=== PATIENT | female | born 1965 | race Caucasian/White ===

== ENCOUNTER 2020-12-12 13:15 | Emergency (ER) | payer MEDICAID, OTHER ==
[~2020-12-12] VITALS: Ht 149.9 cm; Wt 68.0 kg
[2020-12-12] MEDS ORDERED: KETOROLAC TROMETHAMINE 30 MG INJ IVP ONE (13:45)
[2020-12-12] MEDS ORDERED: CEFEPIME HCL 2 G in IV DEXTROSE 5% 100 ML IV ONE (13:45)
[2020-12-12] MEDS ORDERED: IV NORMAL SALINE 1000 ML BAG IV ONE (13:45)
[2020-12-12 13:51] LABS: MEAN CORPUSCULAR HEMOGLOBIN 26.8 uug (24.7-32.8); MEAN CORPUSCULAR VOLUME 80.9 fL (75.5-95.3); PLATELET COUNT (AUTO) 216 K/uL (179-408)
[2020-12-12 13:55] LABS: *BILIRUBIN,URIN NEGATIVE (NEGATIVE); *BLOOD, URINE 3+ (NEGATIVE); *CLARITY,URINE CLEAR (CLEAR); *COLOR,URINE Orange (YELLOW); *KETONES,URINE NEGATIVE (NEGATIVE); LEUKOCYTE ESTERASE ,URINE 1+ (NEGATIVE); NITRITE, URINE POSITIVE (NEGATIVE); UGLUCOSE TRACE (NEGATIVE)
[2020-12-12 13:58] LABS: CREATININE 0.6 mg/dL (0.6-1.3); POTASSIUM 3.7 mmol/L (3.5-5.1)
[2020-12-12 14:04] LABS: BILIRUBIN,DIRECT 0.2 mg/dL (0.0-0.2); BILIRUBIN,TOTAL 1.1 mg/dL (0.2-1.0); TOTAL PROTEIN, SERUM 7.5 g/dL (6.4-8.2)
[2020-12-12] MEDS ORDERED: CEFD300C3 PO (14:13)
[2020-12-12] MEDS ORDERED: IBUP-1955 PO (14:13)
[2020-12-12] MEDS ORDERED: KETOROLAC TROMETHAMINE 30 MG INJ ONE (14:23)
[2020-12-12] MEDS ORDERED: CEFEPIME HCL 1 G VIAL ONE (14:24)
[2020-12-12 15:13] LABS: RBC,URINE 20-50 /HPF (0-3)
[2020-12-12 15:14] LABS: BACTERIA,URINE FEW /HPF (NONE SEEN); SQUAMOUS EPITHELIAL CELL,UR FEW /HPF (NONE SEEN)
--- NOTE | 2020-12-12 15:45 | NUR ---
Maxepime end time at [id number]
--- NOTE | 2020-12-12 16:29 | NUR ---
Pt states she is pain free. Removed IV intact, site okay, bandaged. Gave pt RX and d/c instructions, pt verbalized understanding.
== END 2020-12-12 16:30 | disposition home or self-care (01) ==
LOC: ER 13:15
DX: N10 Acute pyelonephritis (principal); Z87.892 Personal history of anaphylaxis; Z91.040 Latex allergy status; Z87.440 Personal history of urinary (tract) infections; Z95.0 Presence of cardiac pacemaker; R31.9 Hematuria, unspecified
CPT/HCPCS: 36415; 80048; 80076; 81001; 83690; 85025; 87040 ×2; 87086; 96361; 96374; 96375; 99284; J0692; J1885; J7060; 87077; A4663

== ENCOUNTER 2021-01-15 10:37 | Emergency (ER) | payer OTHER ==
[~2021-01-15] VITALS: Ht 149.9 cm; Wt 71.2 kg
[~2021-01-15 10:37] MED LIST: CEFD300C3 PO; IBUP-1955 PO
--- NOTE | 2021-01-15 10:38 | NUR ---
Attempted to triage pt, pt was not found in the ER waiting room.
--- NOTE | 2021-01-15 11:11 | NUR ---
Patient states she went to bed last night and woke up with her left arm and leg being numb, no deficits noted to any extremities, patient is alert and orient x4, complaints of a headache
--- NOTE | 2021-01-15 11:13 | NUR ---
at bedside for assessment
--- NOTE | 2021-01-15 11:35 | NUR ---
CT scan is not working per radiology department and metallurgical or materials technician, estimated time it will be operational is [id number], ERMD notified.
[2021-01-15] MEDS ORDERED: METOCLOPRAMIDE HCL 10 MG/2 ML VIAL IV ONE (11:45)
[2021-01-15] MEDS ORDERED: ACETAMINOPHEN 325 MG TABLET PO ONE (11:45)
[2021-01-15] MEDS ORDERED: IV NORMAL SALINE 500 ML BAG IV ONE (11:45)
[2021-01-15 11:53] LABS: HEMATOCRIT 38.5 % (31.2-41.9); MEAN CORPUSCULAR HEMOGLOBIN 27.3 uug (24.7-32.8); MEAN CORPUSCULAR VOLUME 80.6 fL (75.5-95.3); PLATELET COUNT (AUTO) 227 K/uL (179-408)
[2021-01-15 11:56] LABS: CREATININE 0.6 mg/dL (0.6-1.3); POTASSIUM 3.6 mmol/L (3.5-5.1)
[2021-01-15] MEDS ORDERED: METOCLOPRAMIDE HCL 10 MG/2 ML VIAL ONE (12:23)
[2021-01-15] MEDS ORDERED: ACETAMINOPHEN 325 MG TABLET ONE (12:23)
--- NOTE | 2021-01-15 12:58 | NUR ---
Patient able to tolerate PO medications and food
--- NOTE | 2021-01-15 13:30 | NUR ---
CT Scan still down, it may take another 2-3 hrs per public health technician. Pt to have CT at [facility] per ERMD, radiology dept and public health technician notified. Called [facility] for transport, eta 1430.
[2021-01-15] MEDS ORDERED: IV NORMAL SALINE 250 ML IV ONE (14:10)
[2021-01-15] MEDS ORDERED: IOHEXOL 350 100 ML INFUS..BTL ONE (14:10)
[2021-01-15] MEDS ORDERED: SWABABLE VALVE TRANSFER SET EA MC ONE (14:10)
--- NOTE | 2021-01-15 14:30 | NUR ---
Pt signed consent for CTA after speaking with ERMCurt and heavy equipment technician about the procedure.
--- NOTE | 2021-01-15 14:54 | NUR ---
Patient being transported to [facility] for CTA at this time via Ambulance service, no signs of distress, no complaints of pain at this time
[2021-01-15] MEDS ORDERED: ASPI81TA31 PO (18:12)
--- NOTE | 2021-01-15 18:35 | NUR ---
Patient noted eating dinner, no signs of distress noted
--- NOTE | 2021-01-15 19:10 | NUR ---
Received report from JJ Mueller. Pt noted to be in bed, resting comfortably, VSS. Denies any pain/discomfort. Clear speech, complete sentences. No deficits to all extremities. Strong grib on bilateral hands. Bed in lowezst position for safety precautions.
--- NOTE | 2021-01-15 20:20 | NUR ---
PT ACCEPTED TO [facility] RECEIVING DOCTOR: DR. MCCULLOUGH ROOM: 508 TELE UNIT ([address] WE[address]) REPORT NUMBER: [phone] NURSE: SURESH
--- NOTE | 2021-01-15 20:35 | NUR ---
CALLED [facility] NO AVAILABLE TRANSPO UNTIL 1AM [facility]. CALLED [facility], PER SAMI NO AVAILABLE TRANSPOTATIONS FOR THE WHOLE NIGHT.
--- NOTE | 2021-01-15 20:39 | NUR ---
CALLED [facility] SPOKE WITH JOSLYN, PROVIDED ETA OF 30 MINS.
--- NOTE | 2021-01-15 21:00 | NUR ---
GAVE REPORT TO ANGELA PRINCE RN NURSE FROM [facility].
--- NOTE | 2021-01-15 21:25 | NUR ---
[facility] UNIT 325 AT BEDSIDE TO TRANSPORT PT TO [facility].
--- NOTE | 2021-01-15 21:29 | NUR ---
Patient Tranfers to outside Facility Physician: Dr. Flowers Location: [facility] Room 508 Tele [address]. VSS, denies any pain/discomfort, all extremities noted without deficits. Clear speech, complete sentences.
== END 2021-01-15 21:30 | disposition short-term general hospital (02) ==
LOC: ER 10:37
DX: R53.1 Weakness (principal); R20.0 Anesthesia of skin; E78.5 Hyperlipidemia, unspecified; I10 Essential (primary) hypertension; Z95.0 Presence of cardiac pacemaker; Z87.892 Personal history of anaphylaxis; Z91.040 Latex allergy status; Z91.048 Other nonmedicinal substance allergy status; Z20.822 Contact with and (suspected) exposure to COVID-19
CPT/HCPCS: 36415; 70450; 70496; 70498; 71045; 80048; 80061; 82962; 84484; 85025; 85730; 87426; 93005; 96361; 96374; 99285; J2765; Q9967; 70030-TC; A4663; J7030; J7050

== ENCOUNTER 2021-09-01 17:18 | Emergency (ER) | payer OTHER ==
[~2021-09-01] VITALS: Ht 149.9 cm; Wt 70.3 kg
[~2021-09-01 17:18] MED LIST changes: +ASPI81TA31 PO; -CEFD300C3 PO
--- NOTE | 2021-09-01 17:28 | NUR ---
at bedside to examine pt.
[2021-09-01] MEDS ORDERED: CEFTRIAXONE 1 G in IV DEXTROSE 5% 50 ML IV ONE (17:45)
[2021-09-01] MEDS ORDERED: IV NORMAL SALINE 1000 ML BAG IV ONE (17:45)
[2021-09-01 17:53] LABS: *BILIRUBIN,URIN NEGATIVE (NEGATIVE); *BLOOD, URINE NEGATIVE (NEGATIVE); *CLARITY,URINE CLEAR (CLEAR); *COLOR,URINE YELLOW (YELLOW); *KETONES,URINE NEGATIVE (NEGATIVE); *UROBILINOGEN,URINE 0.2 E.U./dl (NORMAL); LEUKOCYTE ESTERASE ,URINE NEGATIVE (NEGATIVE); NITRITE, URINE POSITIVE (NEGATIVE); UGLUCOSE TRACE (NEGATIVE)
--- NOTE | 2021-09-01 17:53 | NUR ---
patient went to CT scan.
[2021-09-01 17:54] LABS: HEMATOCRIT 37.9 % (31.2-41.9); MEAN CORPUSCULAR HEMOGLOBIN 26.1 uug (24.7-32.8); MEAN CORPUSCULAR VOLUME 79.3 fL (75.5-95.3); PLATELET COUNT (AUTO) 230 K/uL (179-408)
[2021-09-01 18:05] LABS: CREATININE 0.7 mg/dL (0.6-1.3); POTASSIUM 3.6 mmol/L (3.5-5.1)
[2021-09-01 18:11] LABS: BILIRUBIN,DIRECT 0.2 mg/dL (0.0-0.2); BILIRUBIN,TOTAL 0.9 mg/dL (0.2-1.0); TOTAL PROTEIN, SERUM 7.9 g/dL (6.4-8.2)
[2021-09-01] MEDS ORDERED: CEPH500C2 PO (18:11)
[2021-09-01] MEDS ORDERED: IBUP-1955 PO (18:11)
--- NOTE | 2021-09-01 18:56 | NUR ---
discontinued IV post IV infusion.
--- NOTE | 2021-09-01 18:57 | NUR ---
discharge paperwork done. Dr. rooney spoke to patient reviewed results and follow up details with her doctor and prescriptions.
[2021-09-01 23:11] LABS: BACTERIA,URINE FEW /HPF (NONE SEEN); RBC,URINE 0-3 /HPF (0-3); SQUAMOUS EPITHELIAL CELL,UR FEW /HPF (NONE SEEN); WBC,URINE 0-3 /HPF (0-3)
== END 2021-09-01 19:01 | disposition home or self-care (01) ==
LOC: ER 17:21
DX: N12 Tubulo-interstitial nephritis, not specified as acute or chronic (principal); N39.0 Urinary tract infection, site not specified; Z91.040 Latex allergy status; Z91.09 Other allergy status, other than to drugs and biological substances; R00.1 Bradycardia, unspecified; Z95.0 Presence of cardiac pacemaker; E78.5 Hyperlipidemia, unspecified; Z87.440 Personal history of urinary (tract) infections; K59.09 Other constipation
CPT/HCPCS: 36415; 83690; 85025; 87086; A4663